=== PATIENT | male | born 1990 | race American Indian/Alaskan Native ===

== ENCOUNTER 2018-01-24 21:00 | Emergency (ER) | payer SELFPAY ==
--- NOTE | 2018-01-24 21:43 | Emergency Department Report ---
HPI - General Chief Complaint: Psych Time Seen by Provider: 01/24/18 21:24 - HPI HPI: 27-year-old -Afghan male presents to the emergency department via PD as he asked them to bring him to a hospital for a mental health evaluation. The patient has a history of schizoaffective disorder, bipolar disorder, anxiety. He says he has been prescribed medications in the past but never really took them on a regular basis. He denies any visual hallucinations but does have constant auditory hallucinations that "say they are coming to get me" and caused some paranoia. He denies any homicidal ideations but does have relatively consistent suicidal ideations. The patient says that he last made an attempt to kill himself about one week ago. He just moved down here from [place]. He says that he ran into his cousin who realized that there was something wrong and told him he needed to be seen at the hospital. He is a tobacco smoker but denies any illicit drug use. ED Past Medical Hx - Past Medical History Previous Medical History?: Yes Hx Psychiatric Treatment: Yes (bipolar schitzophrenia anxiety depression) - Surgical History Past Surgical History?: No - Social History Smoking Status: Current Every Day Smoker Substance Use Type: Marijuana ED Review of Systems ROS: Stated complaint: SUICIDAL Other details as noted in HPI Comment: All other systems reviewed and negative Constitutional: denies: chills, fever Eyes: denies: eye pain, eye discharge, vision change ENT: denies: ear pain, throat pain Respiratory: denies: cough, shortness of breath, wheezing Cardiovascular: denies: chest pain, palpitations Gastrointestinal: denies: abdominal pain, nausea, diarrhea Genitourinary: denies: urgency, dysuria Musculoskeletal: denies: back pain, joint swelling, arthralgia Skin: denies: rash, lesions Neurological: denies: headache, weakness, paresthesias Psychiatric: auditory hallucinations, suicidal thoughts. denies: visual hallucinations, homicidal thoughts Physical Exam - Physical Exam Vital Signs: Vital Signs 01/24/18 21:15 Temperature 98.4 F Pulse Rate 66 Respiratory 18 Rate Blood Pressure 133/78 O2 Sat by Pulse 97 Oximetry Physical Exam: GENERAL: The patient is well-developed well-nourished. HENT: Normocephalic. Atraumatic. Patient has moist mucous membranes. EYES: Extraocular motions are intact. Pupils equal reactive to light bilaterally. NECK: Supple. Trachea is midline. CHEST/LUNGS: Clear to auscultation. There is no respiratory distress noted. HEART/CARDIOVASCULAR: Regular. There is no tachycardia. There is no murmur. ABDOMEN: Abdomen is soft, nontender. Patient has normal bowel sounds. There is no abdominal distention. SKIN: Skin is warm and dry. NEURO: The patient is awake, alert, and oriented. The patient is cooperative. The patient has no focal neurologic deficits. The patient has normal speech. MUSCULOSKELETAL: There is no tenderness or deformity. There is no limitation range of motion. There is no evidence of acute injury. ED Course Vital Signs 01/24/18 21:15 Temperature 98.4 F Pulse Rate 66 Respiratory 18 Rate Blood Pressure 133/78 O2 Sat by Pulse 97 Oximetry ED Medical Decision Making - Lab Data Result diagrams: 01/24/18 21:43 01/24/18 21:43 - Medical Decision Making Patient presents for a mental health evaluation. He has a history of bipolar disorder, schizoaffective disorder and anxiety. He has auditory hallucinations that are causing him some paranoia. He has suicidal ideations. For all these reasons patient appears to be a candidate to be made a 1013 and for inpatient psychiatric treatment. A 1013 form was signed. Labs up and mostly unremarkable except for marijuana being positive on the urine drug screen. Otherwise no signs of infection or electrolyte abnormalities. Negative blood alcohol level. Vital signs stable. The patient appears medically cleared for psychiatric placement. - Differential Diagnosis schizophrenia, schizoaffective, bipolar, depression Critical Care Time: No Critical care attestation.: If time is entered above; I have spent that time in minutes in the direct care of this critically ill patient, excluding procedure time. ED Disposition Clinical Impression: Suicidal ideations, Auditory hallucinations, History of schizoaffective disorder, History of bipolar disorder Disposition: [id number]/TX-[id number] PSY HOSP/PSY UNIT Is pt being admited?: No Condition: Stable Time of Disposition: 23:22
[2018-01-24 22:05] LABS: Basophils # (Auto) 0.1 K/mm3 (0.0-0.1); Basophils % (Auto) 0.8 % (0.0-1.8); Eosinophils # (Auto) 0.2 K/mm3 (0.0-0.4); Eosinophils % (Auto) 2.8 % (0.0-4.3); Hematocrit 42.6 % (35.5-45.6); Hemoglobin 14.5 gm/dl (11.8-15.2); Lymphocytes # (Auto) 1.8 K/mm3 (1.2-5.4); Lymphocytes % (Auto) 22.4 % (13.4-35.0); Mean Corpuscular HGB Conc 34 % (32-34); Mean Corpuscular Hemoglobin 31 pg (28-32); Mean Corpuscular Volume 90 fl (84-94); Monocytes # (Auto) 0.6 K/mm3 (0.0-0.8); Platelet Count 234 K/mm3 (140-440); Red Blood Count 4.72 M/mm3 (3.65-5.03); Red Cell Distribution Width 13.4 % (13.2-15.2)
[2018-01-24 22:07] LABS: Bilirubin,Urine NEG (Negative); Blood,Urine NEG (Negative); Color,Urine Yellow (Yellow); Mucus,Urine FEW /HPF; Protein,Urine <15 mg/dL mg/dL (Negative)
[2018-01-24 22:18] LABS: BUN/Creatinine Ratio 8; Blood Urea Nitrogen 9 mg/dL (9-20); Calcium 9.3 mg/dL (8.4-10.2); Hemolysis Index 7
[2018-01-24 22:27] LABS: Amphetamine Screen,Urine PRESUMPTIVE NEGATIVE; Benzodiazepines Screen,Urine PRESUMPTIVE NEGATIVE; Cocaine Screen,Urine PRESUMPTIVE NEGATIVE; Methadone Screen,Urine PRESUMPTIVE NEGATIVE; Opiate Screen,Urine PRESUMPTIVE NEGATIVE
[2018-01-24 22:54] LABS: Cannabinoid Screen,Urine PRESUMPTIVE POSITIVE
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
--- NOTE | 2018-01-26 16:48 | Progress Note ---
Subjective - Reason for Consult Consult date: 01/26/18 Reason for consult: Psychiatric Follow-up Evaluation - Chief Complaint Chief complaint: "I feel the same way I did when I first came in " Patient is a 27-year-old -Somali male who presents to the emergency department via PD for mental evaluation. Today the patient is irritated during the assessment. He states " I feel hopeless and I still have suicidal ideations. I'm hearing voices that are talking down on me. They're saying derogatory things." Today patient endorses psychosis (paranoia and auditory hallucinations)and suicidal ideations with several plans. He denies HI and VH. Patient reports medication compliance and denies any side effects to medications. Mental Status Exam - Vital signs Last Vital Signs Temp 97.4 F L 01/25/18 21:04 Pulse 58 L 01/25/18 21:04 Resp 16 01/25/18 21:04 BP 127/58 01/25/18 21:04 Pulse Ox 98 01/25/18 21:04 - Exam Narrative exam: Narrative exam Mental Status Exam Appearance: Casually dressed, hospital gown Eye contact: Intermittent Sensorium: Distracted Psychomotor and Musculoskeletal Activity: Sitting on bed Behavior: Cooperative but irritated Speech: Regular rate and tone Mood: "Irritated and angry" Affect: Congruent to mood Thought Process: Circumstantial Thought Content: Paranoid. Denies HI's and VH's. Perception: + AH " They're saying derogatory things" Concentration/Attention: Impaired Suicidal Ideation/Plan: + SI " depending on certain things" Homicidal Ideation/Plan: Patient denies Insight: Variable Judgment: Variable Assessment and Plan Assessment and plan: Impression: Unspecified Mood DO with psychotic features. PTSD. Cannabis Use DO. Today the patient cooperative but irritated during the assessment. DDx: R/O Bipolar DO, Schizoaffective DO Recommendation/Plan: 1. Continue 1013 with placement to inpatient psychiatric services. Will reassess in 24 hours. 2. Increase Zyprexa 10 mg PO HS for psychosis/mood and Trazodone 50 mg PO HS PRN for sleep. Discussed possible metabolic side effects of Zyprexa with patient. 3. Discussed possible suicidality/medication induced sherron/Priapism with patient reference Trazodone. 4. Will continue to monitor mood, psychosis, sleep, appetite, compliance, and side effects.
[2018-01-26] MEDS: DESYREL PO PRN (22:00)
--- NOTE | 2018-01-27 09:36 | Progress Note ---
Subjective - Reason for Consult Consult date: 01/27/18 Reason for consult: Psychiatry Follow-up - Chief Complaint Chief complaint: "I am okay" 27-year-old -[place] male presents to the emergency department via PD for mental evaluation. Today the patient is calm and cooperative during the assessment. He stated that his SI's and AH's has decreased. He stated that he plan to use outpatient psy services and stay compliant with his medications once discharged. He denies HI's and VH's. He denies any side effects of his medications. Mental Status Exam - Vital signs Last Vital Signs Temp 97.8 F 01/27/18 07:27 Pulse 52 L 01/27/18 07:27 Resp 18 01/27/18 07:27 BP 111/78 01/27/18 07:27 Pulse Ox 99 01/27/18 07:27 - Exam Narrative exam: MSE: Appearance: calm, cooperative Behavior: regular eye contact Speech: regular rate and tone Mood: "okay" Affect: congruent to mood Thought Process: circumstantial Thought Content: denies HI's and VH's Motor Activity: lying in bed Cognition: A/O x 3 Insight: variable Judgment: variable Assessment and Plan Impression: Unspecified Mood DO with psy features. PTSD. Cannabis Use DO. Today the patient is calm and cooperative during the assessment. DDx: R/O Bipolar DO, Schizoaffective DO Recommendation/Plan: Continue 1013 with placement to inpatient psy services. Continue Zyprexa 10 mg PO HS for psychosis/mood and Trazodone 50 mg PO HS PRN for sleep. Discussed possible metabolic side effects of Zyprexa with patient. Discussed possible suicidality/medication induced sherron/priapism with patient reference Trazodone.
--- NOTE | 2018-01-28 13:00 | Progress Note ---
Subjective - Reason for Consult Consult date: 01/28/18 Reason for consult: Psychiatry Follow-up - Chief Complaint Chief complaint: "I slept okay" 27-year-old -Singaporean male presents to the emergency department via PD for mental evaluation. Today the patient is calm and cooperative during the assessment. He continue to endorse passive SI's, but stated that he slept better last night. He denies AVH's. He denies any side effects of his medications. Mental Status Exam - Vital signs Last Vital Signs Temp 97.8 F 01/27/18 22:00 Pulse 58 L 01/27/18 22:00 Resp 18 01/27/18 22:00 BP 134/78 01/27/18 22:00 Pulse Ox 98 01/27/18 22:00 - Exam Narrative exam: MSE: Appearance: calm, cooperative Behavior: regular eye contact Speech: regular rate and tone Mood: "okay" Affect: congruent to mood Thought Process: circumstantial Thought Content: denies HI's and AVH's Motor Activity: lying in bed Cognition: A/O x 3 Insight: variable Judgment: variable Assessment and Plan Impression: Unspecified Mood DO with psy features. PTSD. Cannabis Use DO. Today the patient is calm and cooperative during the assessment. The patient endorses passive SI's. DDx: R/O Bipolar DO, Schizoaffective DO Recommendation/Plan: Continue 1013 with placement to inpatient psy services. Continue Zyprexa 10 mg PO HS for psychosis/mood and Trazodone 50 mg PO HS PRN for sleep. Discussed possible metabolic side effects of Zyprexa with patient. Discussed possible suicidality/medication induced sherron/priapism with patient reference Trazodone.
[2018-01-28] MEDS: DESYREL PO PRN (22:27)
--- NOTE | 2018-01-29 10:40 | Progress Note ---
Subjective - Reason for Consult Consult date: 01/29/18 Reason for consult: Psychiatry Follow-up - Chief Complaint Chief complaint: "I feel the same" 27-year-old -Tuval[place] male presents to the emergency department via PD for mental evaluation. Today the patient is calm and cooperative during the assessment. He continue to endorse passive SI's when asked. He denies HI's and AVH's. He denies any side effects of his medications. Mental Status Exam - Vital signs Last Vital Signs Temp 97.3 F L 01/28/18 20:17 Pulse 70 01/29/18 10:02 Resp 18 01/28/18 20:17 BP 114/72 01/29/18 10:02 Pulse Ox 98 01/29/18 10:02 - Exam Narrative exam: MSE: Appearance: calm, cooperative Behavior: regular eye contact Speech: regular rate and tone Mood: "okay" Affect: congruent to mood Thought Process: circumstantial Thought Content: denies HI's and AVH's Motor Activity: lying in bed Cognition: A/O x 3 Insight: variable Judgment: variable Assessment and Plan Impression: Unspecified Mood DO with psy features. PTSD. Cannabis Use DO. Today the patient is calm and cooperative during the assessment. The patient endorses passive SI's. DDx: R/O Bipolar DO, Schizoaffective DO Recommendation/Plan: Continue 1013 with placement to [facility] pending transport time. Continue Zyprexa 10 mg PO HS for psychosis/mood and Trazodone 50 mg PO HS PRN for sleep. Discussed possible metabolic side effects of Zyprexa with patient. Discussed possible suicidality/medication induced sherron/priapism with patient reference Trazodone.
--- NOTE | 2018-01-30 13:25 | Progress Note ---
Subjective - Reason for Consult Consult date: 01/30/18 Reason for consult: Psychiatric Follow-up Evaluation - Chief Complaint Chief complaint: "I feel about the same " Patient is a 27-year-old -[place]auritan[place] male who presents to the emergency department via PD for mental evaluation. Today the patient is calm and cooperative during the assessment. He states " My mind is no longer racing and I think the medication is helping with sleep." Patient continues to endorse intermittent psychosis (paranoia and AH) and SI with a plan to run into ongoing traffic. He denies HI and VH. Patient reports medication compliance. Denies any side effects to medications. Mental Status Exam - Vital signs Last Vital Signs Temp 98.5 F 01/30/18 09:28 Pulse 78 01/30/18 08:48 Resp 16 01/30/18 11:05 BP 167/87 01/30/18 08:48 Pulse Ox 99 01/30/18 11:05 - Exam Narrative exam: Mental Status Exam Appearance: Casually dressed, hospital gown Eye contact: Intermittent Sensorium: Distracted Psychomotor and Musculoskeletal Activity: Sitting on bed Behavior: Cooperative Speech: Regular rate and tone Mood: "Mediocre. In the middle." Affect: Congruent to mood Thought Process: Circumstantial Thought Content: Intermittent paranoia. Denies HI's Perception: + AH " They're saying derogatory things. Calling me names" + VH " I see figures" Concentration/Attention: Impaired Suicidal Ideation/Plan: + SI " run into ongoing traffic" Homicidal Ideation/Plan: Patient denies Insight: Variable Judgment: Variable Assessment and Plan Assessment and plan: Impression: Unspecified Mood DO with psychotic features. PTSD. Cannabis Use DO. Today the patient is calm and cooperative during the assessment. He continues to endorse intermittent psychosis and suicidal ideations with a plan. Denies HI. DDx: R/O Bipolar DO, Schizoaffective DO Recommendation/Plan: 1. Continue 1013 with placement to inpatient psychiatric services. Will reassess in 24 hours. 2. Patient accepted to [facility] pending transport time. 3. Increase Zyprexa 10 mg PO HS for psychosis/mood and Trazodone 50 mg PO HS PRN for sleep. Discussed possible metabolic side effects of Zyprexa with patient. 4. Discussed possible suicidality/medication induced sherron/Priapism with patient reference Trazodone. 5. Will continue to monitor mood, psychosis, sleep, appetite, compliance, and side effects.
[2018-01-30 23:55] VITALS: BP 129/75
--- NOTE | 2018-01-31 12:14 | Progress Note ---
Subjective - Reason for Consult Consult date: 01/31/18 Reason for consult: Psychiatry Follow-up - Chief Complaint Chief complaint: "I feel no different" Patient is a 27-year-old -Martiniquais male who presents to the emergency department via PD for mental evaluation. Today the patient is calm and cooperative during the assessment. He stated that nothing has changed "mentally " with himself. He continue to have passive SI's. He denies HI's abd AVH's. He denies any side effects of his medications. Mental Status Exam - Vital signs Last Vital Signs Temp 97.7 F 01/30/18 21:00 Pulse 52 L 01/30/18 21:00 Resp 18 01/30/18 21:00 BP 129/75 01/30/18 21:00 Pulse Ox 100 01/30/18 21:00 - Exam Narrative exam: MSE: Appearance: calm, cooperative Behavior: regular eye contact Speech: regular rate and tone Mood: "okay" Affect: congruent to mood Thought Process: circumstantial Thought Content: denies HI's and AVH's Motor Activity: lying in bed Cognition: A/O x 3 Insight: variable Judgment: variable Assessment and Plan Impression: Unspecified Mood DO with psy features. PTSD. Cannabis Use DO. Today the patient is calm and cooperative during the assessment. The patient endorses passive SI's. DDx: R/O Bipolar DO, Schizoaffective DO Recommendation/Plan: Continue 1013 with placement to [facility] today. Continue Zyprexa 10 mg PO HS for psychosis/mood and Trazodone 50 mg PO HS PRN for sleep. Discussed possible metabolic side effects of Zyprexa with patient. Discussed possible suicidality/medication induced sherron/priapism with patient reference Trazodone.
== END 2018-01-31 12:03 ==
LOC: EEVIPCON 21:00 → ED 21:00
DX: F25.9 Schizoaffective disorder, unspecified (principal); F31.9 Bipolar disorder, unspecified; F41.9 Anxiety disorder, unspecified; F17.200 Nicotine dependence, unspecified, uncomplicated
CPT/HCPCS: 36415; 80048; 80307; 81001; 85025; 99284; G0480; 80320